=== PATIENT | male | born 1945 | race Caucasian/White ===

== ENCOUNTER 2019-11-01 12:07 | Emergency (ER) | payer MEDICARE, SELFPAY ==
[2019-11-01 12:08] VITALS: BP 154/79; PULSE 61; RESP 16; TEMP 36.6; O2SAT 95; BMI 30.4
--- NOTE | 2019-11-01 12:19 | CT_ITS ---
STUDY: CT ABDOMEN AND PELVIS WITHOUT CONTRAST REASON FOR EXAM: Male, 73 years old. Fell down steps yesterday, left flank pain/bruising, on Plavix. Hx hypertension, melanoma RADIATION DOSAGE (If Supplied By Facility): CTDIvol = ( 11.01 ) mGy, DLP = ( 544.37 ) mGycm TECHNIQUE: Transaxial images were obtained from the dome of the diaphragm to the symphysis pubis without oral contrast, and without intravenous contrast. Sagittal and coronal images were reconstructed. Individualized dose optimization techniques were used for this CT. COMPARISON: None. FINDINGS: Left lower lung atelectasis. There are coronary artery calcifications. There is decreased attenuation of the liver consistent with steatosis. Normal gallbladder and extrahepatic biliary system. Normal spleen. Normal pancreas. Normal bilateral adrenal glands. Normal right kidney. Normal left kidney. Normal visualized stomach. Normal small intestine. Normal colon. The appendix is visualized and appears normal. There is diffuse atherosclerotic calcification of the abdominal aorta, without a demonstrated aneurysm. Normal inferior vena cava. Normal retroperitoneum. Normal urinary bladder. There is no free fluid in the abdomen or pelvis. There is postoperative change in the right inguinal region. There is mild arthritic change of the spine CT/Abdomen/Pelvis without Cont IMPRESSION: No fracture. No solid organ injury. Fatty infiltration of the liver. Left lower lung atelectasis. Atherosclerosis. Electronically Signed: Shade Lomeli MD at 13:07 EDT , Service support ,
--- NOTE | 2019-11-01 12:21 | ED.DCSUM_ITS ---
History of Present Illness Chief Complaint: Fall Informant: Patient Onset: Yesterday Current Severity: Mild Maximum Severity: Mild Narrative: Patient presents with left flank pain after a fall. He states he fell down shauna roximately 4 steps coming down off his deck yesterday and landed on the sidewalk. He is complaining of pain to the left flank and lower ribs. He has chronic shortness of breath and cough that is unchanged from baseline. He denies hematuria. - Past Medical History (1) Hypertension Status: Chronic (2) High cholesterol Status: Chronic (3) Melanoma Status: Chronic Past Medical History - Allergies and Home Meds Allergies/Adverse Reactions: Allergies No Known Allergies Allergy (Verified 11/01/19 12:10) Primary Care Physician: Rock Bailey MD [Primary Care Provider] - Prior records reviewed: Yes Smoking Status: Current every day smoker Review of Systems General: Denies: Chills, Fever Eyes: Denies: Visual changes - bilaterally ENT: Denies: Bilateral ear pain Cardiovascular: Denies: Chest pain Respiratory: Denies: Dyspnea, Cough Gastrointestinal: Reports: Abdominal pain - Left flank pain. Denies: Nausea, Vomiting, Diarrhea Genitourinary: Denies: Dysuria, Hematuria Musculoskeletal: Reports: Back pain - Left flank. Denies: Extremity Pain Skin: Denies: Rash Neurological: Denies: Headache Allergy: Denies: Uticaria Physical Exam Vital Signs/Narrative: Vital Signs Temp Pulse Resp BP Pulse Ox 11/01/19 12:08 97.8 F 61 16 154/79 H 95 Inital Vital Signs reviewed: Yes General: Well nourished, Well developed Head: Normocephalic ENT: Moist mucous membranes Neck: Supple Cardiovascular: Regular rate, Regular rhythm Respiratory: No distress, CTA bilaterally, Wheezing - Mild expiratory wheezes. Abdomen: Soft, Nontender Back: - - CVA tenderness with focal abrasion and ecchymosis. Neurological: Alert, Oriented x3 Psychological: Normal affect Diagnostic/Tx/Re-eval Impressions Abdomen/Pelvis CT 11/01/19 12:19 IMPRESSION: No fracture. No solid organ injury. Fatty infiltration of the liver. Left lower lung atelectasis. Atherosclerosis. Electronically Signed: Shade Lomeli MD at 13:07 EDT , Service support , 11/01/19 12:19 Abdomen/Pelvis without Cont [CT] Stat - Medical Decision Making Patient declined anything for pain here. Test results are discussed with him. He will be given a prescription for [place] that he can use to help control pain especially at night. ED Disposition - Plan for ED Patient: Disposition: Home or Assisted Living Diagnosis: Contusion, flank Instructions: ED SOFT TISSUE CONTUSION Prescriptions: Hydrocodone Bitart/Apap 5-325 [[place] 5MG-325MG] 1 tablet PO Q6H PRN PRN 3 Days #10 tablet PRN Reason: Pain Transmission Status: Sent to [id number] Referrals: Rock Bailey MD [Primary Care Provider] - 1 Week if not improving
== END 2019-11-01 13:16 | disposition home or self-care (01) ==
PROVIDERS: Emergency Provider Emergency Medicine; PCP Family Medicine
DX: S30.1XXA Contusion of abdominal wall, initial encounter (principal); K76.0 Fatty (change of) liver, not elsewhere classified; J98.11 Atelectasis; W10.9XXA Fall (on) (from) unspecified stairs and steps, initial encounter; Y93.9 Activity, unspecified; Y92.9 Unspecified place or not applicable; I10 Essential (primary) hypertension; E78.00 Pure hypercholesterolemia, unspecified; Z85.820 Personal history of malignant melanoma of skin; Z79.02 Long term (current) use of antithrombotics/antiplatelets; Z79.899 Other long term (current) drug therapy; F17.200 Nicotine dependence, unspecified, uncomplicated
CPT/HCPCS: 74176; 99282

== ENCOUNTER 2019-11-11 11:23 | Emergency (ER) | payer MEDICARE, SELFPAY ==
[2019-11-11 11:24] VITALS: BP 141/71; PULSE 60; RESP 18; TEMP 36.5; O2SAT 94; BMI 30.4
--- NOTE | 2019-11-11 11:31 | NURSING ---
NO OLD EKGS
--- NOTE | 2019-11-11 11:55 | EKG12_ITS ---
Test Reason : DIZZINESS Blood Pressure : / mmHG Vent. Rate : 047 BPM Atrial Rate : 047 BPM P-R Int : 122 ms QRS Dur : 088 ms QT Int : 460 ms P-R-T Axes : 039 037 073 degrees QTc Int : 407 ms Sinus bradycardia Nonspecific ST and T wave abnormality Abnormal ECG Confirmed by MARIANA LOPEZ ([id number]), department editor PAKO SORTO ([id number]) on 11/13/2019 7:39:19 AM Referred By: TRISTAN Confirmed By:MARIANA LOPEZ
--- NOTE | 2019-11-11 11:56 | CT_ITS ---
STUDY: CT BRAIN WITH AND WITHOUT CONTRAST REASON FOR EXAM: Male, 73 years old. NEURO DEFICIT, DIZZINESS, Weakness, confusion, HX-MELANOMA, HTN, RADIATION DOSAGE (If Supplied By Facility): CTDIvol = ( 44.99 ) mGy, DLP = ( 1524.73 ) mGycm TECHNIQUE: Transaxial CT imaging of the brain was performed pre and post contrast administration. The examination was performed with intravenous administration of 100ML ISOVUE 370. Individualized dose optimization techniques were used for this CT. COMPARISON: None. FINDINGS: Normal soft tissue structures. Normal calvarium. Normal size ventricles and extra-axial spaces for the patient''s age. There is a 3.8 cm x 3.8 cm x 4.3 cm rim enhancing solid/cystic mass in the right cerebellar hemisphere causing surrounding edema and mass effect with compression of the right side of the fourth ventricle. With the patient''s history of melanoma, a metastatic deposit should be ruled out. Normal basal ganglia and thalami. Normal brainstem. There is no intracranial hemorrhage. There are no findings of an acute ischemic infarction. Mucosal thickening of the ethmoid sinuses as well as the right sphenoid sinus. CT/Brain/Head W/WO Contrast IMPRESSION: 3.8 cm x 3.8 cm x 4.3 cm rim-enhancing solid/cystic mass in the right cerebellar hemisphere. This causes surrounding edema and mass effect with compression of the right side of fourth ventricle. With the patient''s history of melanoma, metastatic deposit should be ruled out. Electronically Signed: Neo Lemus, at 13:29 EDT , Service support ,
--- NOTE | 2019-11-11 11:57 | ED.VIS.STROK ---
History of Present Illness Informant: Patient Onset: Weeks - 1 Timing: Intermittent Quality and Location: Difficulty with Ambulation - And feeling dizzy like things are spinning Onset: Sudden, intermittent Current Severity: Gone - While resting Maximum Severity: Moderate Worsened by: Getting up and walking Relieved by: Lying down, sitting, or remaining still. Associated Symptoms: Headache, Nausea, Vomiting. Negative for: Chest Pain Narrative: Not necessarily worse with turning head. Does not know exactly when it started, but it was sometime after his ER visit 1 week ago when he slipped and fallen and injured his back. That is still hurting but not as bad. He drinks at least 3 beers per day and stopped drinking when he had this fall. He denies having any shakiness, confusion, or other obvious withdrawal symptoms, but states that at some point after his ER visit the vertigo started, which he has never had before, and has been associated with nausea and sometimes vomiting. He states at one point he tried drinking a little bit of a beer, but he abruptly vomited and did not touch it again since. He denies any focal neurologic symptoms in his arms or legs or face. No difficulty speaking or confusion. No fevers or other signs of illness. He has not fallen because of this but has not been eating or drinking very much at all because of all the nausea. He states he did not hit his head when he fell. He had CT scans of his back that showed no fractures and he was deemed safe to treat as supportive care. <Shade Rayo - Last Filed: 11/11/19 14:32> <Boni Trent - Last Filed: 11/11/19 14:46> Chief Complaint: Dizziness - Past Medical History (1) High cholesterol Status: Chronic (2) Hypertension Status: Chronic (3) Melanoma Status: Chronic <Shade Rayo - Last Filed: 11/11/19 14:32> Past Medical History Lives: With Family Smoking Status: Current every day smoker <Shade Rayo - Last Filed: 11/11/19 14:32> <Boni Trent - Last Filed: 11/11/19 14:46> - Allergies and Home Meds Allergies/Adverse Reactions: Allergies No Known Allergies Allergy (Verified 11/11/19 11:24) Primary Care Physician: Rock Bailey MD [Primary Care Provider] - Review of Systems General: Denies: Chills, Fever, Sweats Eyes: Denies: Visual changes - bilaterally, Diplopia ENT: Denies: Bilateral ear pain, Rhinorrhea, Sore throat Cardiovascular: Denies: Chest pain, Palpitations Respiratory: Denies: Dyspnea, Cough, Dyspnea on exertion Gastrointestinal: Reports: Nausea, Vomiting. Denies: Abdominal pain, Diarrhea, Melena, Hematochezia Genitourinary: Denies: Dysuria, Hematuria, Frequency Musculoskeletal: Reports: Back pain. Denies: Neck pain, Extremity Pain Skin: Denies: Rash, Wounds Neurological: Reports: Headache - For several weeks even before his fall 1 week ago, - - Vertigo. See HPI.. Denies: Weakness, Numbness <Shade Rayo - Last Filed: 11/11/19 14:32> STROKE Vital Signs/Narrative: Vital Signs Temp Pulse Resp BP Pulse Ox 11/11/19 11:24 97.7 F L 60 18 141/71 H 94 Inital Vital Signs reviewed: Yes - NIHSS Initial 1a Level of Consciousness: 0 1b LOC Questions (Score 2 if aphasic/stupor): 0 1c LOC Commands (Only score 1st attempt): 0 2 Best Gaze (If aphasic, use reflexive mvmts.): 0 3 Visual: 0 4 Facial Palsy: 0 5 Motor Arm Right (UN = amputation/fusion): 0 5 Motor Arm Left: 0 6 Motor Leg Right: 0 6 Motor Leg Left: 0 7 Limb ataxia (Only + if out of proportion): 0 8 Sensory (Aphasia/stupor=0 or 1, coma=2): 0 9 Best Language: 0 10 Dysarthria (mute, coma=2, intubated=UN): 0 11 Extinction and Inattention (only scored if +): 0 Total Score: 0 General: Well nourished, Well developed, - - Well-appearing, NAD Head: Normocephalic, Atraumatic Eyes: Perrl, EOMI, - - No abnormal nystagmus, no rotatory or vertical nystagmus ENT: Moist mucous membranes, No rhinorrhea, TM's clear Neck: Supple, Nontender, No lymphadenopathy, No JVD Cardiovascular: Regular rate, Regular rhythm, No murmurs Respiratory: No distress, CTA bilaterally, Chest nontender Abdomen: Soft, Nontender, Nondistended, Normal bowel sounds Back: Normal Inspection, - - Tender left low back Extremities: Nontender, No edema Skin: Normal color, No rash, No Trauma Neurological: Alert, Oriented x3, Cranial nerves II-XII grossly intact, Normal Strength, Normal Sensation, Normal DTR, - - With Sumit-Hallpike bilaterally, patient has equal reproduction of vertiginous symptoms that are relatively mild, no nystagmus elicited. Normal oernck-aq-kvlb and zqda-gs-rrul bilaterally Psychological: Normal affect, Normal Mood <Shade Rayo - Last Filed: 11/11/19 14:32> Vital Signs/Narrative: Vital Signs Temp Pulse Resp BP Pulse Ox 11/11/19 14:36 69 22 H 145/69 H 96 11/11/19 12:27 54 L 18 147/67 H 97 11/11/19 11:24 97.7 F L 60 18 141/71 H 94 <Boni Trent - Last Filed: 11/11/19 14:46> Diagnostic/Tx/Re-eval Impressions Brain CT 11/11/19 11:56 IMPRESSION: 3.8 cm x 3.8 cm x 4.3 cm rim-enhancing solid/cystic mass in the right cerebellar hemisphere. This causes surrounding edema and mass effect with compression of the right side of fourth ventricle. With the patient''s history of melanoma, metastatic deposit should be ruled out. Electronically Signed: Neo Lemus, at 13:29 EDT , Service support , 11/11/19 11:56 Brain/Head W/WO Contrast [CT] Stat Laboratory Results 11/11/19 11/11/19 11/11/19 12:20 12:20 12:20 WBC 7.1 RBC 4.93 Hgb 16.0 Hct 47.3 MCV 95.9 H MCH 32.5 H MCHC 33.8 RDW Std Deviation 41.6 RDW Coeff of Juve 11.9 Plt Count 192 MPV 9.9 Immature Gran % (Auto) 0.300 Neut % (Auto) 79.2 H Lymph % (Auto) 12.6 L [place] % (Auto) 7.0 Eos % (Auto) 0.6 Baso % (Auto) 0.3 Absolute Neuts (auto) 5.7 Absolute Lymphs (auto) 0.90 Nucleated RBC % 0 PT 13.6 INR 1.1 APTT 25.9 Sodium 140 Potassium 3.7 Chloride 103 Carbon Dioxide 28.0 Anion Gap 9 BUN 21 H Creatinine 0.99 Estim Creat Clear Calc 65.25 Est GFR (MDRD) Af Amer 96 Est GFR (MDRD) Non-Af 79 BUN/Creatinine Ratio 21.3 H Glucose 123 H Calcium 9.7 Troponin I < 0.015 - Rhythm Strip Rhythm Strip: Sinus Rhythm Rate: 47 Ectopy: None - EKG Initial EKG Interpretation: Sinus Rhythm, No Acute Injury Pattern, Non-Specific ST Changes - diffuse flattening - Medical Decision Making Stroke Team Activated: No - Timing, symptoms for 1 week, and NIH 0 Reviewed Inclusion/Exclusion criteria: Yes Was Patient considered for Endovascular Intervention?: No - mass found as cause of sx IV Alteplase (t-PA) Administered: No - mass found on CT Plain CT shows probable cerebellar mass. Therefore, CT angiography was canceled and instead we obtain CT with contrast, which confirms a mass. There is mass-effect and obliteration of the fourth ventricle. This is likely causing his disequilibrium. He has a history of melanoma and in addition, had a static melanoma with a remote skin lesion removed from an area after his initial one on his foot, this may be the cause of this mass. He will need transfer to a tertiary care center that has neurosurgery capabilities which we do not. Patient prefers [facility], and to go to [facility] if able since it is closer. He currently is stable. [facility] currently does not have any appropriate beds available, so they recommend diverting him to go to [facility], the patient is okay with that. Awaiting acceptance, plan is transfer there if they have availability and can accept him. Decadron 10mg IV given. <Shade Rayo - Last Filed: 11/11/19 14:32> - Medical Decision Making The patient was discussed with Dr. Dejesus, neurosurgery at [facility]. He was accepted in transfer. We are currently awaiting bed assignment. Patient is updated. <Boni Trent - Last Filed: 11/11/19 14:46> ED Disposition <Shade Rayo - Last Filed: 11/11/19 14:32> <Boni Trent - Last Filed: 11/11/19 14:46> - Plan for ED Patient: Disposition: [facility] Diagnosis: Vertigo, central, Cerebellar mass, History of melanoma Referrals: Rock Bailey MD [Primary Care Provider] -
[2019-11-11] MEDS: Meclizine HCl 25 MG Tablet PO (12:20)
[2019-11-11 12:27] VITALS: BP 147/67; PULSE 54; RESP 18; O2SAT 97
[2019-11-11 12:38] LABS: Absolute Neutrophil Count 5.7 X10^3/uL (2.0-7.7); Basophil# 0.02 X10^3/uL; Basophil% 0.3 % (0-1); Eosinophil# 0.04 X10^3/uL; Eosinophils% 0.6 % (0-5); Hematocrit 47.3 % (40-54); Lymphocyte % 12.6 % (19-41); Mean Corp Hgb Conc 33.8 g/dL (32-36); Mean Corpuscular Hgb 32.5 pg (27.0-32.0); Mean Corpuscular Volume 95.9 fL (80-94); Mean Platelet Vol. 9.9 fl (6.2-12.0); NRBC Flagged by Analyzer 0 % (0-5); Neutrophil # 5.65 X10^3/uL (2.7-7.7); Neutrophil % 79.2 % (47-70); Platelet Count 192 K/mm3 (150-450); RBC Distribution Width CV 11.9 % (11.6-14.6); RBC Distribution Width SD 41.6 fl (35.1-43.9); Red Blood Count 4.93 M/mm3 (4.6-6.2); White Blood Count 7.1 K/mm3 (4.4-11.0)
[2019-11-11 12:49] LABS: International Normalized Ratio 1.1; Partial Thromboplast Time 25.9 Seconds (24.1-36.2); Prothrombin Time (Protime)PT. 13.6 SECONDS (11.7-14.9)
[2019-11-11 12:52] LABS: Anion Gap 9 (5-15); BUN 21 mg/dL (7-18); BUN/Creat Ratio 21.3 RATIO (10-20); Calcium,Total 9.7 mg/dL (8.5-10.1); Chloride 103 mmol/L (98-107); Creatinine, Serum 0.99 mg/dL (0.70-1.30); EST Glomerular Filtration Rate 79 mL/min (>60); Est Glom Filt Rate - Afr Amer 96 mL/min (>60); Estimated Creatinine Clearance 65.25 ml/min; Glucose 123 mg/dL (74-106); Potassium 3.7 mmol/L (3.5-5.1); Sodium Level 140 mmol/L (136-145)
[2019-11-11 14:36] VITALS: BP 145/69; PULSE 69; RESP 22; O2SAT 96
[2019-11-11] MEDS: dexAMETHasone 10 MG/ML Vial IV (14:41)
--- NOTE | 2019-11-11 14:43 | NURSING ---
DR GRACIA, [facility], FOR DR MERIDA
[2019-11-11 15:18] VITALS: BP 164/66; PULSE 53; RESP 17; O2SAT 98
--- NOTE | 2019-11-11 16:07 | ED.RN ---
[facility], PATIENT STATES UNCHANGED AT THIS TIME. BELONGINGS TO [facility] WITH PATIENT.
== END 2019-11-11 16:16 | disposition short-term general hospital (02) ==
LOC: ED 14:41
PROVIDERS: Emergency Provider Emergency Medicine; PCP Family Medicine
DX: H81.4 Vertigo of central origin (principal); G93.9 Disorder of brain, unspecified; Z85.820 Personal history of malignant melanoma of skin; I10 Essential (primary) hypertension; E78.00 Pure hypercholesterolemia, unspecified; Z79.82 Long term (current) use of aspirin; Z79.899 Other long term (current) drug therapy; F17.200 Nicotine dependence, unspecified, uncomplicated
CPT/HCPCS: 70470; 80048; 84484; 85025; 85610; 85730; 93005; 96361; 96374; 99285; J7040; Q9967; A4216

== ENCOUNTER 2019-12-25 12:23 | Emergency (ER) | payer MEDICARE, SELFPAY ==
[2019-12-25 12:24] VITALS: BP 132/65; PULSE 57; RESP 16; TEMP 36.4; O2SAT 98; BMI 29.7
--- NOTE | 2019-12-25 12:55 | EKG12_ITS ---
Test Reason : SWELLING Blood Pressure : / mmHG Vent. Rate : 053 BPM Atrial Rate : 053 BPM P-R Int : 116 ms QRS Dur : 086 ms QT Int : 448 ms P-R-T Axes : 031 029 045 degrees QTc Int : 420 ms Sinus bradycardia with Premature atrial complexes Otherwise normal ECG Confirmed by MARIANA LOPEZ ([id number]), medical editor HARLEY FOREMAN ([id number]) on 12/29/2019 11:49:25 AM Referred By: ANUPAM Confirmed By:MARIANA LOPEZ
--- NOTE | 2019-12-25 12:56 | ED.DCSUM_ITS ---
History of Present Illness Chief Complaint: Edema Informant: Patient, Family Narrative: Patient states that on November 16 he had surgery for cerebellar mass. He was discharged home and developed a postoperative infection. He has been at home with vancomycin and cefepime through a right-sided PICC line. He has been very inactive in compliance with his instructions. Over the weekend he developed increasing swelling of the lower extremities. He saw primary care on Sunday neurosurgery on Sunday. He has not been given any Lasix or diuretic. He states all my blood work looks okay. He denies any orthopnea. He is states that he has been short of breath with ambulation but thinks that is more his COPD. He does aerosols every 4 hours. Today family spoke with nursing line from his infectious disease doctors office and they told him to come to emergency because home health notes continued worsening of the lower extremity edema and fluid on the lungs. No history of CHF. No chest pains. Past Medical History - Allergies and Home Meds Allergies/Adverse Reactions: Allergies No Known Allergies Allergy (Verified 12/25/19 12:27) Primary Care Physician: Rock Bailey MD [Primary Care Provider] - Smoking Status: Current every day smoker Review of Systems General: Denies: Chills, Fever, Sweats Eyes: Denies: Visual changes - bilaterally, Diplopia ENT: Denies: Rhinorrhea, Sore throat Cardiovascular: Denies: Chest pain, Palpitations Respiratory: Reports: Dyspnea, Dyspnea on exertion. Denies: Cough, Orthopnea Gastrointestinal: Denies: Abdominal pain, Nausea, Vomiting, Diarrhea, Melena, Hematochezia Genitourinary: Denies: Dysuria, Hematuria, Frequency Musculoskeletal: Reports: Swelling. Denies: Back pain, Extremity Pain Skin: Denies: Rash, Wounds Neurological: Denies: Headache, Weakness, Numbness Physical Exam Vital Signs/Narrative: Vital Signs Temp Pulse Resp BP Pulse Ox 12/25/19 12:24 97.6 F L 57 L 16 132/65 H 98 Inital Vital Signs reviewed: Yes General: Well nourished, Well developed, No Acute Distress Head: Normocephalic, Atraumatic Eyes: Perrl, EOMI ENT: Moist mucous membranes, No rhinorrhea Neck: Supple, Nontender Cardiovascular: Regular rate, Regular rhythm, No murmurs Respiratory: No distress, Chest nontender, Rales, - - Expiratory wheeze bilaterally Abdomen: Soft, Nontender, Nondistended, Normal bowel sounds Back: Nontender, Normal Inspection Extremities: Nontender, Edema - Patient has 1+ tendon edema to the level of the tibial tuberosity Skin: Normal color, No rash Neurological: Alert, Oriented x3, Cranial nerves II-XII grossly intact, Normal Strength, Normal Sensation Psychological: Normal affect, Normal Mood Diagnostic/Tx/Re-eval Clinical Impression(s) from Imaging Studies Chest X-Ray 12/25/19 13:20 IMPRESSION: No acute pulmonary process Electronically Signed: Artemio Khanna MD at 13:45 EDT , Service support , Laboratory Last Values WBC 9.0 K/mm3 (4.4-11.0) 12/25/19 13:00 RBC 3.58 M/mm3 (4.6-6.2) L 12/25/19 13:00 Hgb 11.7 g/dL (13.0-16.5) L 12/25/19 13:00 Hct 36.0 % (40-54) L 12/25/19 13:00 MCV 100.6 fL (80-94) H 12/25/19 13:00 MCH 32.7 pg (27.0-32.0) H 12/25/19 13:00 MCHC 32.5 g/dL (32-36) 12/25/19 13:00 RDW Std Deviation 52.3 fl (35.1-43.9) H 12/25/19 13:00 RDW Coeff of Juve 14.5 % (11.6-14.6) 12/25/19 13:00 Plt Count 93 K/mm3 (150-450) L 12/25/19 13:00 MPV 10.5 fl (6.2-12.0) 12/25/19 13:00 Neut % (Auto) Not Reportable 12/25/19 13:00 Total Counted 100 (MANUAL DIFF) 12/25/19 13:00 Neutrophils % (Manual) 72 % (47-70) H 12/25/19 13:00 Band Neutrophils % 3 % (0-5) 12/25/19 13:00 Lymphocytes % (Manual) 12 % (19-41) L 12/25/19 13:00 Monocytes % (Manual) 5 % (0-10) 12/25/19 13:00 Metamyelocytes % 4 % (0-1) H 12/25/19 13:00 Myelocytes % 3 (0-0) H 12/25/19 13:00 Promyelocytes % 1 (0-0) H 12/25/19 13:00 Diff Path Review October12/25/19 13:00 Platelet Estimate MOD DEC (ADEQ) 12/25/19 13:00 Sodium 143 mmol/L (136-145) 12/25/19 13:00 Potassium 3.6 mmol/L (3.5-5.1) 12/25/19 13:00 Chloride 109 mmol/L (98-107) H 12/25/19 13:00 Carbon Dioxide 31.0 mmol/L (21.0-32.0) 12/25/19 13:00 Anion Gap 3 (5-15) L 12/25/19 13:00 BUN 18 mg/dL (7-18) 12/25/19 13:00 Creatinine 0.65 mg/dL (0.70-1.30) L 12/25/19 13:00 Estim Creat Clear Calc 63.65 ml/min 12/25/19 13:00 Est GFR (MDRD) Af Amer 155 mL/min (>60) 12/25/19 13:00 Est GFR (MDRD) Non-Af 128 mL/min (>60) 12/25/19 13:00 BUN/Creatinine Ratio 27.6 RATIO (10-20) H 12/25/19 13:00 Glucose 172 mg/dL (74-106) H 12/25/19 13:00 Calcium 8.3 mg/dL (8.5-10.1) L 12/25/19 13:00 Troponin I 0.041 ng/mL (<0.045) 12/25/19 13:00 B-Natriuretic Peptide 226.9 pg/mL (0-100) H 12/25/19 13:00 - EKG Initial EKG Interpretation: Sinus Bradycardia - EKG demonstrates a sinus bradycardia at a rate of 53 with PAC. - Medical Decision Making Patient blood work is essentially negative. He ambulates at [id number]%. Chest x-ray does not show any effusion or overt pulmonary edema. Patient will be started on Lasix and he will follow-up with primary care ED Disposition - Plan for ED Patient: Disposition: Home or Assisted Living Diagnosis: Lymphedema Instructions: ED Peripheral Edema, Bilateral Prescriptions: Furosemide [Lasix] 40 mg PO DAILY #5 tab Transmission Status: Pending to [id number] Referrals: Rock Bailey MD [Primary Care Provider] - (in 5 days for recheck)
[2019-12-25 13:17] LABS: Hemoglobin 11.7 g/dL (13.0-16.5); Mean Corp Hgb Conc 32.5 g/dL (32-36); Mean Corpuscular Hgb 32.7 pg (27.0-32.0); Mean Corpuscular Volume 100.6 fL (80-94); Mean Platelet Vol. 10.5 fl (6.2-12.0); POSITIVE COUNT YES; POSITIVE MORPHOLOGY YES; Platelet Count 93 K/mm3 (150-450); RBC Distribution Width CV 14.5 % (11.6-14.6); RBC Distribution Width SD 52.3 fl (35.1-43.9); Red Blood Count 3.58 M/mm3 (4.6-6.2)
[2019-12-25 13:18] VITALS: O2SAT 98
--- NOTE | 2019-12-25 13:20 | RAD_ITS ---
STUDY: X-RAY CHEST REASON FOR EXAM: Male, 74 years old. edema to legs, Hx smoker x 50 years TECHNIQUE: PA and lateral views of the chest. COMPARISON: None. FINDINGS: EKG leads overlie the chest There are interstitial fibrotic changes of the lungs. There is no demonstrated pleural abnormality. Normal size heart. Normal mediastinum and glenna. Normal visualized pulmonary arteries. Normal visualized aortic arch and descending thoracic aorta. There are diffuse degenerative changes of the visualized thoracic spine. Normal visualized ribs, clavicles, and shoulders. There is no demonstrated abnormality of the visualized soft tissue structures of the upper abdomen. RAD/Chest PA and Lateral IMPRESSION: No acute pulmonary process Electronically Signed: Artemio Khanna MD at 13:45 EDT , Service support ,
[2019-12-25 13:32] LABS: Anion Gap 3 (5-15); BUN 18 mg/dL (7-18); BUN/Creat Ratio 27.6 RATIO (10-20); Calcium,Total 8.3 mg/dL (8.5-10.1); Chloride 109 mmol/L (98-107); Creatinine, Serum 0.65 mg/dL (0.70-1.30); EST Glomerular Filtration Rate 128 mL/min (>60); Est Glom Filt Rate - Afr Amer 155 mL/min (>60); Estimated Creatinine Clearance 63.65 ml/min; Glucose 172 mg/dL (74-106); Potassium 3.6 mmol/L (3.5-5.1); Sodium Level 143 mmol/L (136-145)
[2019-12-25 13:36] LABS: Differential Indicated MANUAL DIFF
[2019-12-25] MEDS: Furosemide 100 MG/10 ML Vial 60 MG IV (13:37)
[2019-12-25 13:48] LABS: BNP,B-Type NATRIURETIC PEPTIDE 226.9 pg/mL (0-100)
[2019-12-25 13:50] LABS: Neutrophil-Band 3 % (0-5); Neutrophil-Segmented 72 % (47-70); Total Cells Counted 100 (MANUAL DIFF)
[2019-12-25 13:51] LABS: Lymphocyte 12 % (19-41); Metamyelocyte 4 % (0-1); Monocyte 5 % (0-10); Myelocyte 3 (0-0); Promyelocyte 1 (0-0)
[2019-12-25 13:52] LABS: Platelet Estimate MOD DEC (ADEQ)
[2019-12-25 14:22] LABS: Absolute Lymphocyte Count 1.08 X10^3/uL (0.83-4.51); Absolute Neutrophil Count 6.8 X10^3/uL (2.0-7.7)
[2019-12-25 14:44] VITALS: BP 135/69; PULSE 71; RESP 15; O2SAT 97
[2019-12-26 12:10] LABS: Pathologist Review Reviewed
== END 2019-12-25 14:45 | disposition home or self-care (01) ==
PROVIDERS: Emergency Provider Emergency Medicine; PCP Family Medicine
DX: I89.0 Lymphedema, not elsewhere classified (principal); R00.1 Bradycardia, unspecified; F17.200 Nicotine dependence, unspecified, uncomplicated; J44.9 Chronic obstructive pulmonary disease, unspecified; R06.02 Shortness of breath
CPT/HCPCS: 36592; 71046; 80048; 83880; 84484; 85025; 93005; 96374; 99282; A4216; J1940

== ENCOUNTER 2020-01-14 12:13 | Emergency (ER) | payer MEDICARE, SELFPAY ==
[2020-01-14 12:14] VITALS: BP 101/50; PULSE 58; RESP 16; TEMP 36.7; O2SAT 99; BMI 28.1
[2020-01-14 12:32] VITALS: PULSE 58; RESP 22; O2SAT 99
[2020-01-14 12:39] VITALS: O2SAT 99
--- NOTE | 2020-01-14 12:43 | ED.DCSUM_ITS ---
- ER Visit Summary Date of Service: 01/14/20 Chief Complaint: [Shortness of breath and pulmonary emboli] History of Present Illness: The patient is a 74 M [presents to the emergency department with complaint of pulmonary emboli diagnosed today via CT scan. Patient sent from Dr. Pastrana's office to be started on Lovenox injections. Patient states that he has been short of breath since November 16 when he had a mass resected from his right cerebellum. Patient currently being seen and treated for metastatic melanoma. Patient is to start immunotherapy in 2 days. Patient also with history of hypertension. He denies any chest pain. He denies fevers. He is describing just minimal cough. No prior history of PE or DVT.] Physical Examination: [HEENT-PERRLA, EOMI. Cranial nerves II through XII grossly intact. TMs clear. Mucous membranes moist. No adenopathy. Cardiovascular-regular rate and rhythm without murmur or ectopy Lungs-clear to auscultation, chest wall stable without crepitus or subcu emphysema Abdomen-normoactive bowel sounds, soft, nontender, no rebound or rigidity, no peritoneal signs. Extremities-intact ?4, normal range of motion, normal pulses, atraumatic] Test Results: [None indicated] Emergency Department Course and Treatment: [Patient was given Lovenox 80 mg subcu.] Treatment Plan: [Plan is to have social work see patient and set up with outpatient Lovenox and do teaching on giving self Lovenox.] Patient has unremarkable vital signs and feel he can be treated as an outpatient. Disposition: [Discharged home in stable condition] Impression: [Pulmonary emboli] This note was generated with [employer] dictation software. It may contain incorrect words, spelling, and punctuation that were not noted in review of the chart prior to signing ED Disposition - Plan for ED Patient: Referrals: Rock Bailey MD [Primary Care Provider] -
--- NOTE | 2020-01-14 12:46 | ED.DEP ---
ED Disposition - Plan for ED Patient: Instructions: Pulmonary Embolism Prescriptions: Enoxaparin [Lovenox] 80 mg SUBCUT Q12@0600,1800 #60 syringe Prescription Printed Referrals: Rock Bailey MD [Primary Care Provider] - Devi Pastrana MD [STAFF PHYSICIAN] - 1-2 Days if not improving
[2020-01-14] MEDS: Enoxaparin 80 MG/0.8 ML Syringe SC (12:51)
--- NOTE | 2020-01-14 13:00 | CM.ED ---
Social Work Emergency Department Received phone call from Josh SCOTT indicating that ED physician would like for medication coverage of Lovenox to be checked with patient insurance. This race and sports book writer reviewed which insurance patient has which appears to have prescription coverage. Suggested that prescription be sent to patient's pharmacy, and if not covered this race and sports book writer can check to see what is needed for authorization. Per RN the patient and family wanted to go home and take the prescription with them. Plan: We will make follow-up phone call to patient to ensure prescription was obtained. -ROSALINA Enriquez, ORTHO NURSE
[2020-01-14 13:40] VITALS: BP 101/62; PULSE 53; RESP 16; O2SAT 100
--- NOTE | 2020-01-15 12:13 | CM.ED ---
Social work Emergency department Phone call placed to phone number listed on patient's demographic data. Patient's answered the phone. The confirms that medication was covered by insurance, with a co-pay of $10 at [facility]. reports that she is administering the medication to the patient. denies there are any other needs or concerns at this time. -ROSALINA Enriquez, COMMODITY ANALYST
== END 2020-01-14 14:27 | disposition home or self-care (01) ==
PROVIDERS: Emergency Provider Emergency Medicine; PCP Family Medicine
DX: I26.99 Other pulmonary embolism without acute cor pulmonale (principal); I10 Essential (primary) hypertension; C43.9 Malignant melanoma of skin, unspecified; Z79.82 Long term (current) use of aspirin; Z79.02 Long term (current) use of antithrombotics/antiplatelets; Z79.899 Other long term (current) drug therapy; Z72.0 Tobacco use
CPT/HCPCS: 96372; 99282

== ENCOUNTER 2020-02-05 14:25 | Emergency (ER) | payer MEDICARE, SELFPAY ==
[2020-02-05 14:28] VITALS: BP 121/80; PULSE 77; RESP 18; TEMP 36.4; O2SAT 96; BMI 26.8
--- NOTE | 2020-02-05 15:19 | EKG12_ITS ---
Test Reason : WEAKNESS Blood Pressure : / mmHG Vent. Rate : 060 BPM Atrial Rate : 060 BPM P-R Int : 128 ms QRS Dur : 086 ms QT Int : 436 ms P-R-T Axes : 046 014 028 degrees QTc Int : 436 ms Normal sinus rhythm Nonspecific ST abnormality Abnormal ECG Confirmed by JAYLEN TONG, DANDRE ([id number]), news videotape editor RONA PETTY ([id number]) on 02/11/2020 10:26:45 AM Referred By: JAROD Confirmed By:DANDRE YORK MD
--- NOTE | 2020-02-05 15:23 | ED.DCSUM_ITS ---
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 He underwent resection surgery of his brain at the [facility] in mid November and had a second surgery secondary to infection. Over the last 1 to 2 weeks he is a generalized weakness and frequent falls. He fell last Sunday. And he fell 3 times yesterday most of the time being lowered to the floor so he would be injured. He denies any headache. He is on Lovenox due to prior pulmonary emboli. Currently is under immunotherapy for his melanoma. Denies nausea or vomiting. Decreased oral intake. Denies fever or chills. No dysuria. No melena. Physical Examination: Older male no acute distress current blood pressure 121/80. Afebrile. Does not look septic or toxic. Pulse ox 96% room air no signs hypoxia. Accompanied by his . HEENT exam unremarkable. Well-healed surgical incisions. Neck nontender no lymphadenopathy. Lungs coarse breath sounds bilaterally. Heart regular rate and rhythm no murmur. Rate about 80. Chest nontender. Abdomen soft nontender. Extremities moves all 4. Nontender. Neurovascular intact. No deformities. Back nontender. Skin unremarkable. Neurologically awake alert. Is answering questions and following commands. He is moving all 4 extremities. There is no obvious gross motor weakness. Test Results: Chest x-ray portable 1 view read by myself the radiologist shows no acute abnormality. EKG normal sinus rhythm rate of 60 with no acute abnormality. CBC white count 7.8 hemoglobin 12. No bands. Electrolytes sodium 135 potassium low at 2.8. Normal BUN, creatinine and gap. Orthostatic vital signs negative. CAT scan of the brain without contrast shows a 2.5 x 4 acute hematoma on the right hemisphere of the cerebellum where he had his prior surgery to remove the melanoma metastases. I discussed it with the radiologist he thinks is an acute bleed he is unsure if this is because of the prior surgery or from the patient being on anticoagulation and his falls or for another reason. I discussed all test results with the patient family. Emergency Department Course and Treatment: Older male prior melanoma with resection from his brain with frequent falls and generalized weakness. Treated with IV fluids. Work-up including CT and labs. Treatment Plan: I will speak to the [facility] about transferring the patient up to their main campus due to this intracranial hematoma after surgical resection of a melanoma. Disposition: Transfer to the [facility]. Impression: Frequent falls Acute cerebellar hematoma Anticoagulated on Lovenox History of melanoma with brain metastases status post brain surgery History of prior pulmonary emboli on Lovenox This note was generated with [employer] dictation software. It may contain incorrect words, spelling, and punctuation that were not noted in review of the chart prior to signing ED Disposition - Plan for ED Patient: Referrals: Rock Bailey MD [Primary Care Provider] -
--- NOTE | 2020-02-05 15:25 | RAD_ITS ---
STUDY: X-RAY CHEST REASON FOR EXAM: Male, 74 years old. WEAKNESS AND FALLING SINCE BEGINNING IMMUNOTHERAPY THIS PAST WEEK. HYPOTENSIVE. HAD TUMOR RESECTION 3 WEEKS AGO TECHNIQUE: Single AP portable view of the chest. COMPARISON: Comparison is made with prior study dated 12/25/2019. FINDINGS: The lungs are clear and expanded. There is no demonstrated pleural abnormality. Normal size heart. Normal mediastinum and glenna. Normal visualized pulmonary arteries. There is atherosclerotic calcification of the aortic arch with tortuosity. There are diffuse degenerative changes of the visualized thoracic spine. There is degenerative osteoarthritis of the bilateral shoulders. There is no demonstrated abnormality of the visualized soft tissue structures of the upper abdomen. RAD/Chest 1 View (Portable) IMPRESSION: No acute abnormality is seen. Electronically Signed: Neo Lemus, at 15:48 EDT , Service support ,
[2020-02-05] MEDS: 0.9% Normal Saline 1,000 ML 1000 ML IV (15:45)
[2020-02-05 15:52] LABS: Absolute Lymphocyte Count 0.71 X10^3/uL (0.83-4.51); Absolute Neutrophil Count 6.4 X10^3/uL (2.0-7.7); Basophil# 0.01 X10^3/uL; Basophil% 0.1 % (0-1); Hematocrit 34.2 % (40-54); Lymphocyte # 0.71 X10^3/ul (4.0); Lymphocyte % 9.1 % (19-41); Mean Corp Hgb Conc 35.1 g/dL (32-36); Mean Corpuscular Hgb 32.6 pg (27.0-32.0); Mean Corpuscular Volume 92.9 fL (80-94); Mean Platelet Vol. 9.1 fl (6.2-12.0); Monocyte# 0.66 X10^3/uL; Monocyte% 8.4 % (0-10); NRBC Flagged by Analyzer 0 % (0-5); Neutrophil # 6.41 X10^3/uL (2.7-7.7); Neutrophil % 81.8 % (47-70); POSITIVE MORPHOLOGY YES; Platelet Count 239 K/mm3 (150-450); RBC Distribution Width CV 13.3 % (11.6-14.6); RBC Distribution Width SD 45.7 fl (35.1-43.9); Red Blood Count 3.68 M/mm3 (4.6-6.2); White Blood Count 7.8 K/mm3 (4.4-11.0)
[2020-02-05 16:02] LABS: Differential Indicated SCAN CRITERIA MET
[2020-02-05 16:07] LABS: Anion Gap 7 (5-15); BUN 7 mg/dL (7-18); BUN/Creat Ratio 10.5 RATIO (10-20); Calcium,Total 8.9 mg/dL (8.5-10.1); Chloride 97 mmol/L (98-107); Creatinine, Serum 0.67 mg/dL (0.70-1.30); EST Glomerular Filtration Rate 124 mL/min (>60); Est Glom Filt Rate - Afr Amer 150 mL/min (>60); Estimated Creatinine Clearance 63.65 ml/min; Glucose 105 mg/dL (74-106); Potassium 2.8 mmol/L (3.5-5.1); Sodium Level 135 mmol/L (136-145)
--- NOTE | 2020-02-05 16:20 | CT_ITS ---
We are attempting to reach an attending provider to discuss findings. An addendum with communication details will be sent when the communication is complete. STUDY: CT BRAIN WITH AND WITHOUT CONTRAST REASON FOR EXAM: Male, 74 years old. WEAKNESS AND FALLS. had tumor resection at [facility] 3 weeks ago. had immuno therapy for past week and has been falling and very weak since. bp on ems arrival 92/58. RADIATION DOSAGE (If Supplied By Facility): CTDIvol = ( 44.99 ) mGy, DLP = ( 1952.17 ) mGycm TECHNIQUE: Transaxial CT imaging of the brain was performed pre and post contrast administration. The examination was performed with intravenous administration of IV 50mL Isovue-[id number]. Individualized dose optimization techniques were used for this CT. COMPARISON: None. FINDINGS: Normal soft tissue structures. Status post suboccipital craniectomy. Superficial to the craniectomy is a 6 cm postoperative seroma. At the site of craniectomy and within the right hemisphere of the cerebellum there is a 2.5 x 4.0 cm oval area of increased attenuation consistent with acute hematoma. Normal size ventricles and extra-axial spaces for the patient''s age. Normal white matter tracts of the cerebral hemispheres. Normal basal ganglia and thalami. Normal brainstem. Normal cerebellum. There is no intracranial hemorrhage. There are no findings of an acute ischemic infarction. Normal visualized paranasal sinuses. CT/Brain/Head W/WO Contrast IMPRESSION: 2.5 x 4.0 cm acute hematoma of the right hemisphere of the cerebellum at the site of recent suboccipital craniectomy. Electronically Signed: Eddie Smith MD at 16:39 EDT Tel , Service support ,
[2020-02-05 16:26] VITALS: BP 155/66; PULSE 59; RESP 17; O2SAT 97
[2020-02-05 16:43] LABS: Differential Comment SCANNED
[2020-02-05 17:00] VITALS: BP 133/69; BP 142/75; BP 146/80; PULSE 62; PULSE 71; PULSE 83
--- NOTE | 2020-02-05 17:04 | NURSING ---
pt stood at bedside for orthos. pt leans backward when up. mod weakness noted. pt back to bed and chart up for re eval
[2020-02-05 18:00] VITALS: BP 135/75; PULSE 59; RESP 25; O2SAT 96
[2020-02-05 20:02] VITALS: BP 146/74; PULSE 61; RESP 25; O2SAT 96
== END 2020-02-05 20:35 | disposition home or self-care (01) ==
LOC: ED 15:09
PROVIDERS: Emergency Provider Emergency Medicine; PCP Family Medicine
DX: R29.6 Repeated falls (principal); I61.4 Nontraumatic intracerebral hemorrhage in cerebellum; Z85.820 Personal history of malignant melanoma of skin; Z86.711 Personal history of pulmonary embolism; Z98.890 Other specified postprocedural states; Z79.01 Long term (current) use of anticoagulants; Z79.02 Long term (current) use of antithrombotics/antiplatelets; Z79.899 Other long term (current) drug therapy
CPT/HCPCS: 70470; 71045; 80048; 85025; 93005; 96360; 99285; Q9967; A4216